=== PATIENT | female | born 2005 | race Caucasian/White ===

== ENCOUNTER → 2025-02-13 | Outpatient (CLI) | payer OTHER, SELFPAY ==
--- NOTE | 2025-02-13 09:43 | RAD_ITS ---
PROCEDURE: HIP, UNI W/ PELVIS 2-3 VIEWS 02/13/2025 REASON FOR EXAM: R HIP PAIN TECHNIQUE: Procedure Code: RADHP Modality: DX Procedure: HIP, UNI W/ PELVIS 2-3 VIEWS Laterality: Right COMPARISON: None FINDINGS: Bones: No fracture Joints: No dislocation Soft tissues: Normal Other: No foreign body RAD/HIP, UNI W/ Pelvis 2-3 Views IMPRESSION: No acute abnormality Reading Location: [id number]
== END | disposition home or self-care (01) ==
PROVIDERS: PCP Family Medicine
DX: M25.551 Pain in right hip (principal); S76.011A Strain of muscle, fascia and tendon of right hip, initial encounter; V80.919A Animal-rider injured in unspecified transport accident, initial encounter
CPT/HCPCS: 73502